=== PATIENT | female | born 1965 | race Caucasian/White ===

== ENCOUNTER 2017-11-29 09:11 | Outpatient (CLI) | payer OTHER ==
[2017-11-29 17:47] LABS: T4 (THYROXINE) 8.69 ug/dL (6.09-12.23)
[2017-11-29 17:51] LABS: THYROID STIMULATING HORMONE 1.56 uIU/mL (0.34-5.60)
[2017-11-29 17:53] LABS: FREE T4 (FREE THYROXINE) 0.89 ng/dL (0.58-1.64)
[2017-12-02 12:01] LABS: THYROID PEROXIDASE ANTIBODIES 16 IU/mL (<9)
== END 2017-11-29 09:12 | disposition home or self-care (01) ==
LOC: LAB.F 09:11
PROVIDERS: ATTEND Nurse Practitioner Family
DX: E03.9 Hypothyroidism, unspecified (principal)
CPT/HCPCS: 36415; 84436; 84439; 84443; 84481; 86376; 86800

== ENCOUNTER 2020-09-06 08:06 | Outpatient (CLI) | payer OTHER ==
[2020-09-06 15:04] LABS: EOSINOPHILS # (AUTO) 0.2 10^3/uL (0.0-0.7); EOSINOPHILS % (AUTO) 4.8 %; HCT - HEMATOCRIT 43.1 % (37.0-47.0); HGB - HEMOGLOBIN 14.4 g/dL (12.0-16.0); LYMPHOCYTES # (AUTO) 1.3 10^3/uL (1.5-3.5); LYMPHOCYTES % (AUTO) 31.5 %; MEAN CORPUSCULAR HEMOGLOBIN 32.3 pg (27.0-31.0); MEAN CORPUSCULAR HGB CONC 33.4 g/dL (32.0-36.0); MEAN CORPUSCULAR VOLUME 96.6 fL (81.0-99.0); MEAN PLATELET VOLUME 12.1 fL (7.9-10.8); MONOCYTES # (AUTO) 0.3 10^3/uL (0.0-1.0); MONOCYTES % (AUTO) 7.4 %; NEUTROPHILS # (AUTO) 2.3 10^3/uL (1.5-6.6); NEUTROPHILS % (AUTO) 55.1 %; PLT - PLATELET COUNT 170 10^3/uL (130-450); RED BLOOD COUNT 4.46 10^6/uL (4.20-5.40); RED CELL DISTRIBUTION WIDTH 12.5 % (12.0-15.0); WHITE BLOOD COUNT 4.2 x10^3/uL (4.8-10.8)
[2020-09-06 15:25] LABS: ALBUMIN 4.4 g/dL (3.2-5.5); ALBUMIN/GLOBULIN RATIO 2.1 (1.0-2.2); ALKALINE PHOSPHATASE 75 IU/L (42-121); ALT ALANINE AMINOTRANSFERASE 26 IU/L (10-60); AST ASPARTATE AMINOTRANSFERASE 28 IU/L (10-42); BILIRUBIN,TOTAL 1.7 mg/dL (0.2-1.0); BUN - BLOOD UREA NITROGEN 21 mg/dL (6-20); CALCIUM 9.5 mg/dL (8.5-10.3); CARBON DIOXIDE - CO2 27 mmol/L (21-32); CHLORIDE 101 mmol/L (101-111); CHOL/HDL RATIO 3.8 (<4.4); CHOLESTEROL 283 mg/dL; CREATININE 0.8 mg/dL (0.4-1.0); GFR - MDRD 74 (>89); GLUCOSE 83 mg/dL (70-100); HDL CHOLESTEROL 75 mg/dL; LDL CHOLESTEROL,CALCULATED 194 mg/dL; LDL/HDL RATIO 2.6 (<4.4); POTASSIUM 3.9 mmol/L (3.5-5.0); SODIUM 136 mmol/L (135-145); TOTAL PROTEIN 6.5 g/dL (6.7-8.2); TRIGLYCERIDES 68 mg/dL; VLDL CHOLESTEROL 14 mg/dL
== END 2020-09-06 08:07 | disposition home or self-care (01) ==
LOC: LAB.S 08:06
PROVIDERS: ATTEND Nurse Practitioner Family
DX: Z00.00 Encounter for general adult medical examination without abnormal findings (principal); E55.9 Vitamin D deficiency, unspecified; E78.5 Hyperlipidemia, unspecified
CPT/HCPCS: 36415; 80053; 80061; 82306; 82728; 83721; 85025

== ENCOUNTER 2020-11-29 13:23 | Outpatient (CLI) | payer OTHER ==
--- NOTE | 2020-11-30 11:52 | Mammography Report ---
BILATERAL DIGITAL SCREENING MAMMOGRAM 3D/2D WITH EXAGGERATED CC: 11/29/2020 CLINICAL: Routine screening. Comparison is made to exams dated: 09/14/2014 mammogram and 06/13/2009 mammogram - [facility]. There are scattered fibroglandular elements in both breasts. There are benign calcifications in both breasts. No significant masses, calcifications, or other findings are seen in either breast. There has been no significant interval change. IMPRESSION: BENIGN There is no mammographic evidence of malignancy. A 1 year screening mammogram is recommended. This exam was interpreted at Station ID: [id number]. NOTE: For mammograms, a report in lay terms will be sent to the patient. Approximately 15% of breast malignancies will not be visualized mammographically. In the management of a palpable breast mass, a negative mammogram must not discourage biopsy of a clinically suspicious lesion. Electronically Signed By: Toney Monaco acr/penrad:11/29/2020 14:39:25 ACR BI-RADS Category 2: Benign Finding(s) 3342F PARENCHYMAL PATTERN: (A) - The breast(s) demonstrate(s) scattered fibroglandular densities. BI-RADS CATEGORY: (2) - 2 RECOMMENDATION: (ANNUAL) - Recommend routine annual screening mammography. [id number] 1 year screening LATERALITY: (B)
== END 2020-11-29 13:24 | disposition home or self-care (01) ==
LOC: DI.S 13:23
PROVIDERS: ATTEND Nurse Practitioner Family
DX: Z12.31 Encounter for screening mammogram for malignant neoplasm of breast (principal)

== ENCOUNTER 2021-04-28 16:53 | Outpatient (CLI) | payer OTHER | END 2021-04-28 16:54 | disposition home or self-care (01) | LOC: LAB.S 16:53 | PROVIDERS: ATTEND Physician Assistant Medical | DX: R59.0 Localized enlarged lymph nodes (principal); W55.03XA Scratched by cat, initial encounter | CPT/HCPCS: 81599; 86611 ==

== ENCOUNTER 2021-11-15 07:47 | Outpatient (CLI) | payer OTHER | END 2021-11-15 07:48 | disposition home or self-care (01) | LOC: LAB.S 07:47 | PROVIDERS: ATTEND Registered Nurse | DX: Z01.89 Encounter for other specified special examinations (principal) | CPT/HCPCS: 36415 ==

== ENCOUNTER 2023-10-29 08:00 | Outpatient (CLI) | payer OTHER | END 2023-10-29 23:59 | disposition home or self-care (01) | LOC: LAB.S 08:00 | PROVIDERS: ATTEND Emergency Medicine | DX: J06.9 Acute upper respiratory infection, unspecified (principal) | CPT/HCPCS: 87070 ==

== ENCOUNTER 2023-11-05 08:00 | Outpatient (CLI) | payer OTHER ==
--- NOTE | 2023-11-05 14:09 | XRAY Report ---
PROCEDURE: Chest 2V INDICATIONS: ACUTE COUGH TECHNIQUE: 2 views of the chest were acquired. COMPARISON: None. FINDINGS: Surgical changes and devices: None. Lungs and pleura: No pleural effusions or pneumothorax. Lungs are clear. Mediastinum: Mediastinal contours appear normal. Heart size is normal. Bones and chest wall: No suspicious bony lesions. Overlying soft tissues appear unremarkable. IMPRESSION: No acute cardiopulmonary process. Reviewed by: Baljeet Man MD on 11/05/2023 2:08 PM PDT Approved by: Baljeet Man MD on 11/05/2023 2:08 PM PDT Station ID: [id number]
== END 2023-11-05 23:59 | disposition home or self-care (01) ==
LOC: DI.S 08:00
PROVIDERS: ATTEND Physician Assistant Medical
DX: R05.1 Acute cough (principal); R09.89 Other specified symptoms and signs involving the circulatory and respiratory systems

== ENCOUNTER 2023-11-15 04:24 | Emergency (ER) | payer OTHER ==
--- NOTE | 2023-11-15 04:55 | ED Physician Documentation ---
PD HPI DYSPNEA - Stated complaint Stated Complaint: COUGH/SOA - Chief complaint Chief Complaint: Resp - History obtained from History obtained from: Patient, Family (partner) - Additional information Additional information: 58yF with pmh hypothyroidism p/w nonproductive cough, diagnosed with bronchitis about 10 days previous and placed on tessalon perles. patient had initial improvement but then tonight had a coughing fit prompting her to come to the ED. partner states she was unable to catch her breath. she denies fever, cp, n/v and states her soa has resolved. PD PAST MEDICAL HISTORY - Past Medical History Past Medical History: Yes Endocrine/Autoimmune: HyPOthyroidism GI: None PLC TECHNICIAN: None : None Psych: None Musculoskeletal: None - Past Surgical History Past Surgical History: No - Present Medications Home Medications: Ambulatory Orders Medication Instructions Recorded Confirmed Benzonatate [Tessalon] 11/15/23 Levothyroxine [Synthroid] 88 mcg PO DAILY 11/15/23 11/15/23 - Allergies Allergies/Adverse Reactions: Allergies Allergy/AdvReac Type Severity Reaction Status Date / Time No Known Drug Allergies Allergy Verified 11/15/23 04:30 - Social History Does the pt smoke?: No Smoking Status: Never smoker Does the pt drink ETOH?: No Does the pt have substance abuse?: No - Immunizations Immunizations are current?: Yes - POLST Patient has POLST: No PD ED PE NORMAL - Vitals Vital signs reviewed: Yes - General General: Alert and oriented X 3, No acute distress, Well developed/nourished - HEENT HEENT: Atraumatic, PERRL, EOMI, Moist mucous membranes, Pharynx benign - Neck Neck: Supple, no meningeal sign - Cardiac Cardiac: RRR - Respiratory Respiratory: No respiratory distress, Clear bilaterally Results - Vitals Vitals: Vital Signs - 24 hr 11/15/23 11/15/23 04:32 05:00 Temperature 36.5 C Heart Rate 85 70 Respiratory 16 16 Rate Blood Pressure 126/61 115/72 O2 Saturation 97 95 Oxygen O2 Source Room air PD Medical Decision Making - ED course ED course: 58yF p/w acute SOA tonight associated with coughing fit. she is well appearing and states her symptoms have improved at this time. CXR performed - there are increased interstitial markings but otherwise clear of cardiopulmonary disease. humidified air provided by RT with improvement. Basic labs and cultures sent. patient will f/u outpatient with her pcp. return precautions given. Departure - Departure Disposition: 01 Home, Self Care Clinical Impression: Cough, Bronchitis Condition: Stable Instructions: Coughing Techniques Dc Comments: You were seen in the emergency department for cough. Your chest xray uncovered no emergent issues. Blood cultures were drawn and if you have signs of blood infection we will call with next steps. Please use a cool mist humidifier by the bedside at nighttime. Please follow-up with your primary care provider and return to the emergency department if you have any new or worsening symptoms or other concerns. Forms: PCP List
[2023-11-15 06:23] LABS: BASOPHILS # (AUTO) 0.1 10^3/uL (0.0-0.1); BASOPHILS % (AUTO) 0.7 %; EOSINOPHILS # (AUTO) 0.4 10^3/uL (0.0-0.7); EOSINOPHILS % (AUTO) 3.4 %; HCT - HEMATOCRIT 38.6 % (37.0-47.0); HGB - HEMOGLOBIN 12.6 g/dL (12.0-16.0); LYMPHOCYTES # (AUTO) 1.4 10^3/uL (1.5-3.5); LYMPHOCYTES % (AUTO) 12.7 %; MEAN CORPUSCULAR HEMOGLOBIN 31.6 pg (27.0-31.0); MEAN CORPUSCULAR HGB CONC 32.6 g/dL (32.0-36.0); MEAN CORPUSCULAR VOLUME 96.7 fL (81.0-99.0); MEAN PLATELET VOLUME 11.2 fL (7.9-10.8); MONOCYTES # (AUTO) 0.8 10^3/uL (0.0-1.0); MONOCYTES % (AUTO) 7.7 %; NEUTROPHILS # (AUTO) 8.2 10^3/uL (1.5-6.6); NEUTROPHILS % (AUTO) 74.9 %; PLT - PLATELET COUNT 206 10^3/uL (130-450); RED BLOOD COUNT 3.99 10^6/uL (4.20-5.40); RED CELL DISTRIBUTION WIDTH 11.9 % (12.0-15.0); WHITE BLOOD COUNT 10.9 x10^3/uL (4.8-10.8)
[2023-11-15 06:40] VITALS: BP 121/69; O2SAT 99
[2023-11-15 06:40] LABS: ALBUMIN 3.6 g/dL (3.2-5.5); ALBUMIN/GLOBULIN RATIO 1.2 (1.0-2.2); BILIRUBIN,TOTAL 0.6 mg/dL (0.2-1.0); CALCIUM 9.5 mg/dL (8.5-10.3); CREATININE 0.7 mg/dL (0.6-1.3); TOTAL PROTEIN 6.6 g/dL (6.4-8.9)
--- NOTE | 2023-11-15 09:17 | XRAY Report ---
PROCEDURE: Chest 2V INDICATIONS: cough TECHNIQUE: 2 views of the chest were acquired. COMPARISON: Chest x-ray 11/05/2023. FINDINGS: Surgical changes and devices: None. Lungs and pleura: No pleural effusions or pneumothorax. Focal consolidation in the posterior aspects of the bilateral lower lobes. Mediastinum: Mediastinal contours appear normal. Heart size is normal. Bones and chest wall: No suspicious bony lesions. Overlying soft tissues appear unremarkable. IMPRESSION: Bilateral lower lobe pneumonia. Reviewed by: Lacey Goode MD, PhD on 11/15/2023 9:15 AM PDT Approved by: Lacey Goode MD, PhD on 11/15/2023 9:15 AM PDT Station ID: [id number]
== END 2023-11-15 06:31 | disposition home or self-care (01) ==
LOC: ED 04:24
DX: J40 Bronchitis, not specified as acute or chronic (principal); E03.9 Hypothyroidism, unspecified; Z79.899 Other long term (current) drug therapy
CPT/HCPCS: 36415; 80053; 85025; 87040; 99283; 99284